=== PATIENT | female | born 1960 | race Caucasian/White ===

== ENCOUNTER 2017-09-28 15:03 | Emergency (ER) | payer OTHER ==
[~2017-09-28] VITALS: Ht 157.5 cm; Wt 63.5 kg
[~2017-09-28 15:03] MED LIST: FLEXERIL PO; GLUCOPHAGE XR500 MG PO; LIPITOR 20 MG T20 M1 PO; LOTENSIN40 MG PO; NEURONTIN 300300 M1 PO; NORVASC5 MG PO; WELLBUTRIN XL150 MG PO
[2017-09-28 15:33] LABS: ABSOLUTE NEUTROPHILS 9.7 thou/uL (1.4-8.2); BASOPHILS 0.7 % (0.0-2.0); EOSINOPHILS 1.7 % (0.0-3.0); HEMATOCRIT 38.4 % (37.0-47.0); HEMOGLOBIN 12.8 gm/dL (12.0-15.0); LYMPHOCYTES 12.8 % (24.0-44.0); MCH 30.9 pg (26.0-34.0); MCHC 33.4 g/dL (28.0-37.0); MCV 92.3 fL (80.0-100.0); MONOCYTES 7.3 % (1.0-8.0); PLATELET COUNT 286 thou/uL (150-400); POLYS 77.5 % (36.0-66.0); RBC 4.16 mil/uL (4.20-5.00); RDW 13.3 % (10.5-14.5); WBC 12.6 thou/uL (4.0-11.0)
[2017-09-28 15:58] LABS: ANION GAP 11 mmol/L (7-16); BUN 25 mg/dL (7-18); CALCIUM 9.1 mg/dL (8.5-10.1); CHLORIDE 105 mmol/L (98-107); CO2 25 mmol/L (21-32); CREATININE 1.5 mg/dL (0.6-1.0); GLUCOSE 107 mg/dL (74-106); POTASSIUM 3.9 mmol/L (3.5-5.1); SODIUM 141 mmol/L (136-145)
[2017-09-28 15:58] LABS: URINE BILIRUBIN NEGATIVE (Negative); URINE BLOOD TRACE (Negative); URINE CLARITY CLEAR; URINE COLOR YELLOW; URINE GLUCOSE-RANDOM* NEGATIVE (Negative); URINE KETONES NEGATIVE (Negative); URINE LEUKOCYTES NEGATIVE (Negative); URINE NITRITE NEGATIVE (Negative); URINE PROTEIN (DIPSTICK) NEGATIVE (Negative); URINE UROBILINOGEN 0.2 E.U./dl (0.2-1.0)
[2017-09-28 16:02] LABS: ALBUMIN 3.6 g/dL (3.4-5.0); DIRECT BILIRUBIN < 0.1 mg/dL (<0.1-0.3); LIPASE 123 U/L (73-393); SGOT 23 U/L (15-37); SGPT 27 U/L (30-65); TOTAL BILIRUBIN 0.2 mg/dL (<0.1-1.0); TOTAL PROTEIN 7.3 g/dL (6.4-8.2)
[2017-09-28 16:07] LABS: AMP/METHAMP POSITIVE (Negative); BARBITURATES Negative (Negative); BENZODIAZEPINES Negative (Negative); COCAINE Negative (Negative); METHADONE Negative (Negative); OPIATES Negative (Negative); PCP Negative (Negative)
[2017-09-28] MEDS ORDERED: BACTRIM DS TAB1 EACH PO (16:19)
[2017-09-28 16:45] VITALS: BP 132/57
== END 2017-09-28 16:46 | disposition home or self-care (01) ==
LOC: ER 15:03
PROVIDERS: Nurse Practitioner
DX: L03.115 Cellulitis of right lower limb (principal); F17.210 Nicotine dependence, cigarettes, uncomplicated; I10 Essential (primary) hypertension; Z90.710 Acquired absence of both cervix and uterus; Z88.0 Allergy status to penicillin; Z88.6 Allergy status to analgesic agent

== ENCOUNTER 2019-11-18 17:19 | Emergency (ER) | payer OTHER ==
[~2019-11-18] VITALS: Ht 160 cm; Wt 56.7 kg
[~2019-11-18 17:19] MED LIST changes: +BACTRIM DS TAB1 EACH PO
[2019-11-18 18:10] LABS: ABSOLUTE NEUTROPHILS 8.8 thou/uL (1.4-8.2); BASOPHILS 1.1 % (0.0-2.0); EOSINOPHILS 2.1 % (0.0-3.0); HEMATOCRIT 43.2 % (37.0-47.0); HEMOGLOBIN 14.3 gm/dL (12.0-15.0); LYMPHOCYTES 16.8 % (24.0-44.0); MCH 31.3 pg (26.0-34.0); MCHC 33.1 g/dL (28.0-37.0); MCV 94.4 fL (80.0-100.0); MONOCYTES 4.4 % (1.0-8.0); PLATELET COUNT 314 thou/uL (150-400); POLYS 75.6 % (36.0-66.0); RBC 4.58 mil/uL (4.20-5.00); RDW 13.3 % (10.5-14.5); WBC 11.7 thou/uL (4.0-11.0)
[2019-11-18 18:16] LABS: ANION GAP 11 mmol/L (7-16); BUN 24 mg/dL (7-18); CALCIUM 9.1 mg/dL (8.5-10.1); CHLORIDE 105 mmol/L (98-107); CO2 25 mmol/L (21-32); CREATININE 1.2 mg/dL (0.6-1.0); GLUCOSE 232 mg/dL (74-106); POTASSIUM 3.4 mmol/L (3.5-5.1); SODIUM 141 mmol/L (136-145)
[2019-11-18 18:26] LABS: ALBUMIN 3.5 g/dL (3.4-5.0); SGOT 13 U/L (15-37); SGPT 13 U/L (30-65); TOTAL BILIRUBIN 0.1 mg/dL (<0.1-1.0); TOTAL PROTEIN 7.1 g/dL (6.4-8.2); TROPONIN-I <0.06 ng/mL (<0.06)
[2019-11-18] MEDS ORDERED: MOBIC7.5 MG PO (18:46)
[2019-11-18 19:00] VITALS: BP 127/70
--- NOTE | 2019-11-19 08:20 | EKG ---
[facility] [place] [address] ELECTROCARDIOGRAM REPORT Name: DENNIS DUNNE Room #: DEP [facility]#: [id number] Admission: 11/18/19 Attend Phys: Discharge: 11/18/19 Date of : 56 Report #: [id number] THIS REPORT FOR: cc: Tamara Baxter MD, Nora P. 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: [facility] : 1960 Requested By: Laurie Feliciano Order Number: [id number] MD: Lisandro Villa Measurements Intervals Sebastian Rate: 95 P: 76 MD: 157 QRS: 48 QRSD: 92 T: 94 QT: 351 QTc: 442 Interpretive Statements Sinus rhythm Abnormal T, lateral leads No previous ECG available for comparison Electronically Signed On 11-19-2019 8:19:00 YOUTH COORDINATOR by Lisandro Villa [email or web address] <ELECTRONICALLY SIGNED> By: Lisandro Villa MD, [facility] 11/19/19 0819 [id number] Lisandro Villa MD, [facility] /EPI
== END 2019-11-18 19:01 | disposition home or self-care (01) ==
LOC: ER 17:19
PROVIDERS: Nurse Practitioner Family
DX: M65.829 Other synovitis and tenosynovitis, unspecified upper arm (principal); N28.9 Disorder of kidney and ureter, unspecified; I10 Essential (primary) hypertension; F17.210 Nicotine dependence, cigarettes, uncomplicated; Z88.5 Allergy status to narcotic agent; Z91.010 Allergy to peanuts; Z90.710 Acquired absence of both cervix and uterus

== ENCOUNTER 2020-12-22 08:59 | Inpatient (IN) | payer OTHER ==
[~2020-12-22] VITALS: Ht 160 cm; Wt 60.5 kg
--- NOTE | ~2020-12-22 | P ---
[facility] [place] [address] PROCEDURE REPORT Name: DENNIS DUNNE Room #: 449-I ADM IN M.R.#: [id number] Admission: 12/22/20 Attend Phys: Bertha Baez Discharge: Date of : 56 Report #: [id number] THIS REPORT FOR: cc: Tamara Baxter MD, Nora P. MD McElhinney, Christian C. MD ~ DATE OF SERVICE: 12/23/2020 PROCEDURE PERFORMED: Colonoscopy with biopsies. HISTORY OF PRESENT ILLNESS: The patient is a 60-year-old female, who was seen in consultation yesterday for nausea, vomiting, abdominal pain and diarrhea. Pain is in the right lower quadrant. CT scan of the abdomen and pelvis showing moderate wall thickening of the proximal and mid jejunum as well as moderate asymmetric wall thickening of the low sigmoid colon extending to the rectum. White count was elevated on admission. She is afebrile. She is on antibiotics at this time. She does report improvement in her symptoms overnight. She was unable to take the entire prep. Last colonoscopy in 2015, 2 small polyps were removed. Hemorrhoids were also noted. DESCRIPTION OF PROCEDURE: The risks and benefits of the procedure were explained to the patient, those risks including but not limited to bleeding, perforation and the risk of sedation. She understood these risks and gave informed consent. Sedation was given using propofol per anesthesia. Next, a digital rectal exam was initially performed, which was normal. Next, using a standard Olympus colonoscope, the scope was placed in the patient's anus and advanced under direct vision to the cecum. The overall prep was poor in some areas, which limited visualization significantly. The cecum and ileocecal valve was normal in appearance. The terminal ileum was intubated and normal in appearance. The portions of the ascending, transverse, descending and sigmoid colon that were visualized were normal. No obvious colitis was seen. Random biopsies were obtained to rule out the possibility of microscopic colitis. The rectal mucosa was normal. On retroflexion, small nonbleeding internal hemorrhoids were noted. The scope was then withdrawn and the procedure terminated. The patient tolerated the procedure well. IMPRESSION: No obvious colitis on endoscopy today visualization was limited by poor prep in areas. RECOMMENDATIONS: 1. Await biopsy results. 2. Continue antibiotics. 3. We would repeat colonoscopy in the near future due to poor prep in areas. [address] [address] PROCEDURE REPORT Name: UZAIRDENNISMone HANSEN Room #: 449-I [facility] IN M.R.#: [id number] Admission: 12/22/20 Attend Phys: Bertha Baez Discharge: Date of : 56 Report #: [id number] Thank you for allowing me to participate in her care. By: 0940 1055 Terence Khan MD /nt
[~2020-12-22 08:59] MED LIST changes: +MOBIC7.5 MG PO
[2020-12-22 09:08] VITALS: BP 159/91
[2020-12-22] MEDS ORDERED: LIPITOR 40 MG T40 M1 PO (09:24)
[2020-12-22 09:31] LABS: URINE BILIRUBIN NEGATIVE (Negative); URINE BLOOD NEGATIVE (Negative); URINE CLARITY CLEAR; URINE COLOR YELLOW; URINE GLUCOSE-RANDOM* NEGATIVE (Negative); URINE KETONES NEGATIVE (Negative); URINE LEUKOCYTES-REFLEX NEGATIVE (Negative); URINE NITRITE-REFLEX NEGATIVE (Negative); URINE PROTEIN (DIPSTICK) TRACE (Negative); URINE SPECIFIC GRAVITY >= 1.030 (1.005-1.035); URINE UROBILINOGEN 0.2 E.U./dl (0.2-1.0)
[2020-12-22 09:32] LABS: ABSOLUTE NEUTROPHILS 14.3 thou/uL (1.4-8.2); BASOPHILS 0.4 % (0.0-2.0); EOSINOPHILS 0.3 % (0.0-3.0); HEMATOCRIT 43.7 % (37.0-47.0); HEMOGLOBIN 14.3 gm/dL (12.0-15.0); LYMPHOCYTES 9.7 % (24.0-44.0); MCH 31.7 pg (26.0-34.0); MCHC 32.8 g/dL (28.0-37.0); MCV 96.8 fL (80.0-100.0); MONOCYTES 2.8 % (1.0-8.0); PLATELET COUNT 377 thou/uL (150-400); POLYS 86.8 % (36.0-66.0); RBC 4.51 mil/uL (4.20-5.00); WBC 16.5 thou/uL (4.0-11.0)
[2020-12-22 09:38] LABS: CALCIUM 9.6 mg/dL (8.5-10.1); CREATININE 1.2 mg/dL (0.6-1.0); POTASSIUM 4.1 mmol/L (3.5-5.1)
[2020-12-22 09:44] LABS: ALBUMIN 4.1 g/dL (3.4-5.0); TOTAL BILIRUBIN 0.3 mg/dL (0.2-1.0)
[2020-12-22 11:29] VITALS: BP 138/92
[2020-12-22 11:54] VITALS: BP 139/82
[2020-12-22 15:53] VITALS: BP 183/98
--- NOTE | 2020-12-22 19:02 | NUR ---
ASSUMED CARE OF PT XFERED FROM ER AT 1200 HOURS THIS AFTERNOON. PT WAS ADMITTED FOR RIGHT ABD AND FLANK PAIN. PT WIS A/OX4, EYES PERRLA, LUNGS CLEAR ALL LINK WEAK LFT SIDED PULSES IN DISTAL AND RADIAL. OTHERWISE 2+ ON THE RIGHT. PT SHOWS SIGNS OF ANXIETY AND DISCOMFORT. SKIN INTACT, CR<3SEC, SKIN W/D/P, PT HAS BEEN C/O PAIN IN THE ABD AND BACK RATED AT A 4 ON 1/10 SCALE. PT WAS UPSET BECAUSE THE PAIN LEVEL ISN'T ENOUGH TO WARRANT IV MORPHINE. PAGED DR. TOMAS TO REQUEST PAIN MED FOR PAIN 1-5 AND WAS GIVEN OVER THE PHONE ORDER FOR TRAMADOL 50MG, PO Q4H PRN. ASSESSMENT OTHERWISE UNREMARKABLE. CALL LIGHT AND NEEDS PLACED WITHIN REACH.
[2020-12-22 20:17] VITALS: BP 156/83
--- NOTE | 2020-12-23 01:28 | NUR ---
ASSUMED CARE OF PT SHIFT CHANGE. PT IS AOX4 AND LETS NEEDS BE KNOWN. PT IS UP AD CLARISSA. ASSESSMENT CHARTED. PT REPORTED ABDOMINAL PAIN AND PRN MEDS WERE GIVEN. PT WAS ONLY ABLE TO COMPLETE 50% OF BOWEL PREP IT WAS GIVING PT ABDOMINAL CRAMPS. NO BM NOTED. PT PLACED NPO AT MIDNIGHT. ABX TREATMENT CONTINUED. IVF CONTINUED. PT WAS ABLE TO GET COMFORTABLE AND SLEEP PART OF THE SHIFT. VSS AND NO S/S OF ACUTE DISTRESS. WILL CONTINUE TO MONITOR.
[2020-12-23 05:10] LABS: HEMOGLOBIN 13.4 gm/dL (12.0-15.0); MCH 31.8 pg (26.0-34.0); MCHC 32.7 g/dL (28.0-37.0); MCV 97.1 fL (80.0-100.0); RBC 4.23 mil/uL (4.20-5.00); RDW 13.8 % (10.5-14.5); WBC 8.9 thou/uL (4.0-11.0)
[2020-12-23 05:40] LABS: ALBUMIN 3.3 g/dL (3.4-5.0); CALCIUM 8.7 mg/dL (8.5-10.1); POTASSIUM 4.4 mmol/L (3.5-5.1); TOTAL BILIRUBIN 0.3 mg/dL (0.2-1.0); TOTAL PROTEIN 6.7 g/dL (6.4-8.2)
[2020-12-23 07:40] VITALS: BP 146/92
--- NOTE | 2020-12-23 09:43 | NUR ---
Received awake on bed. Due medications given as prescribed. On room air. Vital signs stable. On MS, not on telemetry; no complains and signs of chest pain, crushing sensation and heaviness. Assisted in ADLs. On nothing per orem, pt informed and aware. Pt scheduled for colonoscopy today- a/w consent to be signed. Continent of bowel and bladder, able to go to the toilet independently; as reported by night RN, pt only able to finish 50-60% of bowel prep, stools not clear yet- GI nurse Annalee informed re: this, will inform physician if pt still needs to have enema prior to procedure- a/w call back- pt update. With elevated BP noted this AM, rechecked BP after 30mins- WNL. With NS at 125cc/hr, infusing well at L AC. Pt seen and examined by MAYTE Mantilla this AM, tap water enema done at bedside; pt fetched via stretcher. To continue monitoring patient.
[2020-12-23 10:10] VITALS: BP 137/81
--- NOTE | 2020-12-23 11:59 | NUR ---
Chart reviewed and case discussed with the care team. Attempted to see the pt this am, however she was out of her room for colonoscopy. Chemistry Laboratory Technician attempted to reach her via phone at this time and no answer in her room. Per the care team, the pt has been up with supervision in her room and drove herself to the ER. She lives at home with her son Lois Tamayo [phone]. She is disabled and has health ins and pcp in place for f/u care. Her pcp is Dr. Tamara Baxter. The pt will be starting on clear liquids and advancing as tolerated. She is on iv atb as well. Bx taken to rule out microscopic colitis. No cm interventions indicated at this time. Will follow along with the pt's progress. Dc home in 1-2 days.
[2020-12-23 14:34] VITALS: BP 157/93
[2020-12-23 19:20] VITALS: BP 141/86
--- NOTE | 2020-12-23 22:41 | NUR ---
PT IS A/O X4 AND IS UP AD CLARISSA. PT APPEARS ANXIOUS AND RESTLESS IN BILAT LE. NON-COMPLIANT WITH CARES. REMOVED IV STATING SHE DIDN'T WANT THE IV PLACED, DOES NOT WANT IV FLUID, AND DOES NOT WANT IV ABX. ROOM AIR. VOIDS PER TOILET, NO BM THIS SHIFT. C/O OF INSOMNIA. PRN SLEEP MEDICATION GIVEN DIRECTED. PT HAS NOT BEEN USING CALL LIGHT, INSTEAD WALKS TO THE NURSING STATION TO ASK FOR ASSISTANCE. AT THIS TIME PT IS LYING IN HER BED AND APPEARS TO BE SLEEPING. WILL CONTINUE TO MONITOR.
[2020-12-24 02:30] VITALS: BP 148/88
[2020-12-24 07:09] VITALS: BP 149/95
[2020-12-24] MEDS ORDERED: LEVOFLOXACIN500 MG PO (09:30)
[2020-12-24 09:45] VITALS: BP 149/95
[2020-12-24] MEDS ORDERED: ZOFRAN ODT4 MG PO (09:54)
--- NOTE | 2020-12-24 10:13 | NUR ---
PATIENT WANTS TO GO HOME, SHE DOES NOT HAVE IV ACCESS AND IS REFUSING PLACEMENT. VSS. C/O FERMIN. TRAMADOL GIVEN. DISCHARGED HOME IN STABLE CONDITION WITH PRESCRIPTION FOR LEVAQUIN AND ZOFRAN.
--- NOTE | 2020-12-25 18:08 | PATH ---
[facility] [place] [address] PATHOLOGY RPT PROCEDURE Name: SHAGUFTA DUNNE Room #: 449-I DIS IN M.R.#: [id number] Admission: 12/22/20 Date of : 56 Discharge: 12/24/20 Report #: [id number] Path Case #: [id number] [facility] Accession Number: [id number] . 01 Material submitted: . colon - RANDOM COLON BIOPSY . 01 Clinical history: . R/O MICROSCOPIC COLITIS . COLITIS PER CT,RLQ ABD PAIN . ABDOMINAL PAIN ENTERITIS . 02 Diagnosis: Large intestinal mucosa, random colon rule out microscopic colitis, endoscopic biopsy: - Nonspecific reactive changes with focal apoptosis and hyperplastic foci. - Negative for microscopic colitis. - Negative for dysplasia or malignancy. . (IUV:mml; 12/25/2020) QLM 12/25/2020 1345 Local . 02 Comment: Sections of colon biopsy tissues show crypts at regular intervals and no increase in cellularity of lamina propria. There are no granulomas. The collagen layer underneath the epithelium is not thickened. There is no distortion in crypt architecture as well. There is no evidence of dysplasia. . (IUV:mml; 12/25/2020) . 02 Electronically signed: . Nazia Reynolds MD, Pathologist NPI- [id number] . 01 Gross description: . Received in formalin labeled "Kurt Shagufta, random colon BX rule out microscopic colitis" are multiple yuen-brown soft tissue fragments measuring in aggregate 1.2 x 0.5 x 0.1 cm. The specimen is submitted entirely in A1. ([facility] 12/24/2020) [facility] 12/24/2020 1139 Local . 02 Pathologist provided ICD-10: R10.31, K52.9 . [address] [address] PATHOLOGY RPT PROCEDURE Name: SHAGUFTA DUNNE TYRONE Room #: 449-I DIS IN .R.#: [id number] Admission: 12/22/20 Date of : 56 Discharge: 12/24/20 Report #: [id number] Path Case #: [id number] [facility] . [id number] Specimen Comment: A courtesy copy of this report has been sent to [phone], [phone] Specimen Comment: 2008 Specimen Comment: Report sent to / DR OJEDA Performed at: [address], [place], [place] [id number] MD Khadar Carlisle MD Phone: [phone] Performed at: [address] [id number] MD Nazia Reynolds MD Phone: [phone]
== END 2020-12-24 10:16 | disposition home or self-care (01) | DRG 392 ==
LOC: ER 08:59 → EROBS 11:18 → 4W 11:18
PROVIDERS: Emergency Medicine; Nurse Practitioner; ADMIT Hospitalist; ATTEND Hospitalist
PROC: 0DBE8ZX Excision of Large Intestine, Via Natural or Artificial Opening Endoscopic, Diagnostic (ICD-10-PCS; principal; 2020-12-23)
DX: K52.839 Microscopic colitis, unspecified (principal); Z20.822 Contact with and (suspected) exposure to COVID-19; I10 Essential (primary) hypertension; E11.9 Type 2 diabetes mellitus without complications; F17.210 Nicotine dependence, cigarettes, uncomplicated; F19.10 Other psychoactive substance abuse, uncomplicated; Z90.710 Acquired absence of both cervix and uterus; Z88.6 Allergy status to analgesic agent; Z88.0 Allergy status to penicillin; Z86.010 Personal history of colon polyps; Z79.899 Other long term (current) drug therapy
CPT/HCPCS: 10040; 62110; 62900; 70005

== ENCOUNTER → 2021-01-28 | Outpatient (CLI) | payer OTHER ==
[~2021-01-28] MED LIST changes: +LEVOFLOXACIN500 MG PO; +LIPITOR 40 MG T40 M1 PO; +ZOFRAN ODT4 MG PO
== END ==
LOC: CAT 13:16 → BC 13:16
PROVIDERS: ATTEND Family Medicine
DX: Z12.31 Encounter for screening mammogram for malignant neoplasm of breast (principal); N28.1 Cyst of kidney, acquired; K56.41 Fecal impaction

== ENCOUNTER → 2021-01-28 | Outpatient (CLI) | payer OTHER | LOC: SJCVC 14:02 | PROVIDERS: ATTEND Internal Medicine | DX: R06.00 Dyspnea, unspecified (principal); R00.2 Palpitations; R42 Dizziness and giddiness; E11.51 Type 2 diabetes mellitus with diabetic peripheral angiopathy without gangrene; E78.5 Hyperlipidemia, unspecified; I10 Essential (primary) hypertension; I73.9 Peripheral vascular disease, unspecified; K21.9 Gastro-esophageal reflux disease without esophagitis; E78.00 Pure hypercholesterolemia, unspecified; F17.210 Nicotine dependence, cigarettes, uncomplicated; Z90.710 Acquired absence of both cervix and uterus; Z98.890 Other specified postprocedural states; Z88.0 Allergy status to penicillin; Z88.5 Allergy status to narcotic agent; Z79.82 Long term (current) use of aspirin; Z79.84 Long term (current) use of oral hypoglycemic drugs; Z79.899 Other long term (current) drug therapy; Z82.49 Family history of ischemic heart disease and other diseases of the circulatory system ==

== ENCOUNTER → 2021-02-12 | Outpatient (CLI) | payer OTHER | LOC: SJCVCIMAG 08:19 | PROVIDERS: ATTEND Internal Medicine | DX: I73.9 Peripheral vascular disease, unspecified (principal); M79.604 Pain in right leg; M79.605 Pain in left leg; F17.200 Nicotine dependence, unspecified, uncomplicated; Z79.82 Long term (current) use of aspirin; Z79.899 Other long term (current) drug therapy ==

== ENCOUNTER → 2021-02-25 | Outpatient (CLI) | payer OTHER | LOC: SJCVCIMAG 07:31 | PROVIDERS: ATTEND Internal Medicine | DX: R00.0 Tachycardia, unspecified (principal); I11.9 Hypertensive heart disease without heart failure; R06.00 Dyspnea, unspecified; R42 Dizziness and giddiness; M79.606 Pain in leg, unspecified; E78.5 Hyperlipidemia, unspecified; E11.9 Type 2 diabetes mellitus without complications; E78.00 Pure hypercholesterolemia, unspecified; R53.83 Other fatigue; F17.210 Nicotine dependence, cigarettes, uncomplicated; Z88.0 Allergy status to penicillin; Z88.8 Allergy status to other drugs, medicaments and biological substances; Z79.82 Long term (current) use of aspirin; Z79.84 Long term (current) use of oral hypoglycemic drugs; Z79.899 Other long term (current) drug therapy; Z82.49 Family history of ischemic heart disease and other diseases of the circulatory system ==

== ENCOUNTER → 2021-11-12 | Outpatient (CLI) | payer OTHER | LOC: CAT 12:04 | PROVIDERS: ATTEND Nurse Practitioner | DX: K76.0 Fatty (change of) liver, not elsewhere classified (principal); J43.8 Other emphysema; J98.4 Other disorders of lung; K20.80 Other esophagitis without bleeding; R18.8 Other ascites ==